=== PATIENT | male | born 1995 | race Caucasian/White ===

== ENCOUNTER 2017-12-17 15:01 | Emergency (ER) | payer OTHER ==
[2017-12-17] MEDS: DERMABOND TOPICAL SKIN ADHESIVE TOP ×2 (17:00)
[2017-12-17] MEDS: ADACEL/BOOSTRIX VACCINE (DIPHTH/PERTUSS/ACELL/TETANUS)0.5ML SYR (90715) IM ×2 (17:03)
== END 2017-12-17 17:33 | disposition home or self-care (01) ==
LOC: M ED 15:01
DX: S71.112A Laceration without foreign body, left thigh, initial encounter (principal); W26.0XXA Contact with knife, initial encounter; Y92.9 Unspecified place or not applicable; Y93.9 Activity, unspecified; Y99.0 Civilian activity done for income or pay
CPT/HCPCS: 90715

== ENCOUNTER 2018-10-10 17:31 | Emergency (ER) | payer MEDICAID, OTHER ==
[~2018-10-10] VITALS: Ht 177.8 cm; Wt 63.6 kg
[2018-10-10 17:31] VITALS: BP 141/90
[~2018-10-10 17:31] MED LIST: NORC1TAB7 PO; augmentin PO
[2018-10-10] MEDS ORDERED: TRIA25CR TOP (17:53)
== END 2018-10-10 18:01 | disposition home or self-care (01) ==
LOC: M ED 17:31
DX: T78.40XA Allergy, unspecified, initial encounter (principal)

== ENCOUNTER → 2023-06-18 | Outpatient (REF) | payer OTHER, MEDICAID ==
[~2023-06-18] MED LIST changes: +TRIA25CR TOP
== END ==
LOC: M SFHCDERM 14:08
PROVIDERS: ATTEND Physician Assistant
DX: I78.1 Nevus, non-neoplastic (principal)